=== PATIENT | female | born 1975 | race Caucasian/White ===

== ENCOUNTER 2019-04-14 05:33 | Emergency (ER) | payer MEDICAID ==
[2019-04-14] MEDS ORDERED: Ondansetron 4 MG Tab.DIS PO ONE (06:36)
--- NOTE | 2019-04-14 07:02 | EDM.PDOC ---
ED HPI GENERAL MEDICAL PROBLEM - General Chief Complaint: Abdominal Pain Stated Complaint: SEVERE LOWER ABD PAIN Time Seen by Provider: 04/14/19 06:52 Source of Information: Reports: Patient, RN Notes Reviewed History Limitations: Reports: No Limitations - History of Present Illness INITIAL COMMENTS - FREE TEXT/NARRATIVE: 44-year-old female presents emergency department today complaint of abdominal pain, she states she has had abdominal pain for the last 24 hours it will wax and wane but does feel nauseated also some suprapubic pressure no fevers left lower back Pain Score (Numeric/FACES): 9 - Related Data Allergies Allergy/AdvReac Type Severity Reaction Status Date / Time mustard Allergy Hives Verified 04/14/19 05:55 Home Meds: Home Meds NK [No Known Home Meds] 04/14/19 [History] Past Medical History HEENT History: Reports: Impaired Vision Cardiovascular History: Reports: Heart Murmur [employer] History: Reports: Musculoskeletal History: Reports: Arthritis Neurological History: Reports: Concussion, Headaches, Chronic Psychiatric History: Reports: Anxiety Hematologic History: Reports: Anemia Oncologic (Cancer) History: Reports: Cervix - Infectious Disease History Infectious Disease History: Reports: Chicken Pox - Past Surgical History HEENT Surgical History: Reports: Other (See Below) Other HEENT Surgeries/Procedures: Mass removed from face GI Surgical History: Reports: Bariatric Procedure Female Surgical History: Reports: Breast Biopsy, Other (See Below) Other Female Surgeries/Procedures: cervical biopsies, cervical cancer. Uterine biopsies Social & Family History - Tobacco Use Smoking Status *Q: Current Every Day Smoker Years of Tobacco use: 25 Packs/Tins Daily: 0.5 - Caffeine Use Caffeine Use: Reports: Coffee, Soda - Recreational Drug Use Recreational Drug Use: Yes Drug Use in Last 12 Months: Yes Recreational Drug Type: Reports: Marijuana/Hashish Recreational Drug Use Frequency: Rarely ED ROS GENERAL - Review of Systems Review Of Systems: See Below Constitutional: Reports: No Symptoms HEENT: Reports: No Symptoms Respiratory: Reports: No Symptoms Cardiovascular: Reports: No Symptoms GI/Abdominal: Reports: Abdominal Pain, Nausea, Vomiting ED EXAM, GI/ABD - Physical Exam Exam: See Below Exam Limited By: No Limitations General Appearance: Alert, WD/WN, Mild Distress Respiratory/Chest: No Respiratory Distress GI/Abdominal Exam: Normal Bowel Sounds, Soft, Non-Tender, No Organomegaly, No Distention Course - Vital Signs Last Recorded V/S: Last Vital Signs Temp 99.4 F 04/14/19 06:23 Pulse 97 04/14/19 06:23 Resp 16 04/14/19 06:23 BP 162/86 H 04/14/19 06:23 Pulse Ox 97 04/14/19 06:23 - Orders/Labs/Meds Orders: Active Orders 24 hr Category Date Time Status KUB [Abdomen 1V Flat] [CR] Stat Exams 04/14/19 06:20 Taken Labs: Laboratory Tests 04/14/19 Range/Units 06:19 Urine Color Yellow (YELLOW) Urine Appearance Cloudy A (CLEAR) Urine pH 5.5 (5.0-8.0) Ur Specific [place] 1.025 (1.008-1.030) Urine Protein Negative (NEGATIVE) mg/dL Urine Glucose (UA) Negative (NEGATIVE) mg/dL Urine Ketones Negative (NEGATIVE) mg/dL Urine Occult Blood Moderate H (NEGATIVE) Urine Nitrite Negative (NEGATIVE) Urine Bilirubin Negative (NEGATIVE) Urine Urobilinogen 0.2 (0.2-1.0) EU/dL Ur Leukocyte Esterase Trace H (NEGATIVE) Urine RBC 10-20 H (0-5) Urine WBC 20-30 H (0-5) Ur Epithelial Cells Few Amorphous Sediment Not seen Urine Bacteria Many Urine Mucus Not seen Meds: Medications Discontinued Medications Generic Name Dose Route Start Last Admin Trade Name Dylanq PRN Reason Stop Dose Admin Ondansetron HCl 4 mg 04/14/19 06:36 04/14/19 06:40 Zofran Odt PO 04/14/19 06:37 4 mg ONETIME ONE Administration Departure - Departure Time of Disposition: 07:12 Disposition: Eloped 07 Condition: Fair Clinical Impression: UTI (urinary tract infection) Qualifiers: Urinary tract infection type: acute cystitis Hematuria presence: with hematuria Qualified Code(s): N30.01 - Acute cystitis with hematuria Constipation Qualifiers: Constipation type: slow transit constipation Qualified Code(s): K59.01 - Slow transit constipation - Discharge Information Referrals: Ralph Henriquez MD [Primary Care Provider] - Additional Instructions: Take full course of antibiotics, follow the colonoscopy prep with MiraLAX, please followup with your primary care provider in 3-5 days if not better, please call return to the emergency department with worsening of symptoms. - My Orders Last 24 Hours: My Active Orders 04/14/19 06:20 KUB [Abdomen 1V Flat] [CR] Stat - Assessment/Plan Last 24 Hours: My Active Orders 04/14/19 06:20 KUB [Abdomen 1V Flat] [CR] Stat Plan: Assessment Acuity = acute Site and laterality = urinary tract infection with functional constipation Etiology = probable bacterial cause for UTI Manifestations = abdominal pain Location of injury = Home Lab values = urinalysis reveals 10-20 RBCs consistent with hematuria 10-20 WBCs consistent with pyuria cultures pending plain film does show large amount stool official read radiologist pending Plan Prescription written for Bactrim DS 1 tab p.o. twice daily x3 days she is can use MiraLAX we did provide her the directions for the colonoscopy prep follow- up with primary care 3 to 5 days if not better This note was dictated using [employer] voice recognition software please call with any questions on syntax or grammar.
--- NOTE | 2019-04-14 07:11 | CRLCR ---
Indication: Lower abdominal pain Technique: Abdomen 1 view Comparison: None Findings/Impression: No dilated loops of large or small intestine. Moderate amount of stool within the colon. Fallopian tube occlusion wires noted. Density to the left of midline measuring 6 millimeters which could represent a left renal stone or enteric contents. Dictated by Meet Armendariz MD @ Apr 14 2019 7:07AM Signed by Dr. Meet Armendariz @ Apr 14 2019 7:09AM
== END 2019-04-14 07:31 | disposition home or self-care (01) ==
LOC: JP.ED 05:33
DX: N30.01 Acute cystitis with hematuria (principal); K59.01 Slow transit constipation; F17.210 Nicotine dependence, cigarettes, uncomplicated; Z91.018 Allergy to other foods
CPT/HCPCS: 74018; 81001; 87086; 87088; 87186; 99284; A9270

== ENCOUNTER 2021-10-20 18:59 | Emergency (ER) | payer MEDICAID ==
[2021-10-20] MEDS ORDERED: Ondansetron 4 MG/2 ML SDV IVPUSH ONE (20:56)
[2021-10-20] MEDS ORDERED: HYDROmorphone 1 MG/ML Syringe IVPUSH ONE (20:56)
[2021-10-20] MEDS ORDERED: Pantoprazole 40 MG Vial IVPUSH ONE (21:00)
[2021-10-20] MEDS ORDERED: Iohexol 647 MG/ML 50 ML SDV PO SCH (21:45)
[2021-10-20] MEDS: Iopamidol 612 MG/ML 30 ML SDV ONE ×2 (22:02→22:21)
[2021-10-20] MEDS ORDERED: Iopamidol 612 MG/ML 100 ML Bottle IV STA (23:11)
[2021-10-20] MEDS ORDERED: Sodium Chloride 0.9% 50 ML IV STA (23:12)
[2021-10-21] MEDS ORDERED: Dextrose 5%-0.45% NaCl 1,000 ML IV SCH (00:15)
[2021-10-21] MEDS ORDERED: Meropenem 1 GM in Sodium Chloride 0.9% 100 ML IV ONE (00:27)
[2021-10-21] MEDS ORDERED: Sodium Chloride 0.9% 1,000 ML IV ONE (00:27)
[2021-10-21] MEDS ORDERED: HYDROmorphone 1 MG/ML Syringe IVPUSH ONE (02:00)
== END 2021-10-21 02:28 ==
LOC: JP.ED 18:59
DX: K80.00 Calculus of gallbladder with acute cholecystitis without obstruction (principal); Z91.048 Other nonmedicinal substance allergy status; Z20.822 Contact with and (suspected) exposure to COVID-19
CPT/HCPCS: 36415; 74177; 83605; 87635; 96361; 96365; 96375; 96376; 99285; C9113; J1170; J2185; J2405; J3490; J7030; Q9967; 99283; U0002